=== PATIENT | female | born 1985 | race Caucasian/White ===

== ENCOUNTER 2018-05-24 09:42 | Emergency (ER) | payer OTHER ==
[~2018-05-24] VITALS: Ht 157.5 cm; Wt 104.3 kg
[2018-05-24 10:54] LABS: INR 1.5; PROTIME 15.3 Seconds (9.3-11.4)
[2018-05-24] MEDS ORDERED: COUMADIN 5 MG TA5 M1 PO (11:01)
[2018-05-24] MEDS ORDERED: KLONOPIN1 MG PO (11:24)
[2018-05-24] MEDS ORDERED: METHADOSE10 MG PO (11:24)
[2018-05-24] MEDS ORDERED: LEXAPRO20 MG PO (11:25)
[2018-05-24 11:26] VITALS: BP 135/85
== END 2018-05-24 11:19 | disposition home or self-care (01) ==
LOC: ER 09:42
PROVIDERS: Physician Assistant
DX: R79.1 Abnormal coagulation profile (principal); F17.200 Nicotine dependence, unspecified, uncomplicated; F32.9 Major depressive disorder, single episode, unspecified; F41.9 Anxiety disorder, unspecified; Z86.718 Personal history of other venous thrombosis and embolism

== ENCOUNTER 2018-06-01 09:37 | Emergency (ER) | payer OTHER ==
[~2018-06-01] VITALS: Ht 157.5 cm; Wt 104.3 kg
[~2018-06-01 09:37] MED LIST: COUMADIN 5 MG TA5 M1 PO; KLONOPIN1 MG PO; LEXAPRO20 MG PO; METHADOSE10 MG PO
[2018-06-01 10:40] LABS: INR 1.5; PROTIME 15.5 Seconds (9.3-11.4)
[2018-06-01] MEDS ORDERED: ENOXAPARIN100 MG/11 SUBQ (11:19)
[2018-06-01] MEDS ORDERED: COUMADIN 5 MG TA5 M1 PO (11:20)
[2018-06-01 11:51] VITALS: BP 130/69
== END 2018-06-01 11:51 | disposition home or self-care (01) ==
LOC: ER 09:37
PROVIDERS: Emergency Medicine
DX: I82.4Y2 Acute embolism and thrombosis of unspecified deep veins of left proximal lower extremity (principal); R79.1 Abnormal coagulation profile; Z79.01 Long term (current) use of anticoagulants

== ENCOUNTER 2018-06-08 09:46 | Emergency (ER) | payer OTHER ==
[~2018-06-08] VITALS: Ht 157.5 cm; Wt 77.1 kg
[~2018-06-08 09:46] MED LIST changes: +ENOXAPARIN100 MG/11 SUBQ
[2018-06-08 10:40] LABS: INR 1.3; PROTIME 13.3 Seconds (9.3-11.4)
[2018-06-08 11:41] VITALS: BP 126/88
== END 2018-06-08 11:25 | disposition home or self-care (01) ==
LOC: ER 09:46
PROVIDERS: Physician Assistant
DX: R79.9 Abnormal finding of blood chemistry, unspecified (principal); Z79.01 Long term (current) use of anticoagulants; Z86.718 Personal history of other venous thrombosis and embolism